=== PATIENT | male | born 1950 | race African-American/Black ===

== ENCOUNTER 2019-10-13 12:06 | Inpatient (IN) | payer OTHER ==
[2019-10-13] MEDS: FLUDROCORTISONE 0.1 MG TAB PO SCH (09:00)
[2019-10-13] MEDS: SODIUM BICARB 325 MG TAB PO SCH ×2 (09:00→23:28)
[2019-10-13] MEDS ORDERED: NA CHLORIDE 0.9% 3,000 ML ONE (13:10)
[2019-10-13] MEDS ORDERED: CEFTRIAXONE/SWI 1gm 1 GM/10 ML SYR ONE (13:13)
[2019-10-13] MEDS ORDERED: ACETAMINOPHEN 500 MG TAB ONE (13:13)
[2019-10-13 13:20] LABS: Absolute Lymphocytes (CBC) 1.3 K/uL (0.7-4.9); Basophils % 0.7 % (0-1.3); Hematocrit 39.9 % (39.6-49.0); Lymphocytes % 16.6 % (15.3-44.8); MPV 10.3 fL (7.6-11.3); RBC Red Blood Cell Count 4.04 M/uL (4.33-5.43)
[2019-10-13 13:24] LABS: Protime INR 0.99
[2019-10-13 13:51] LABS: Albumin 3.3 g/dL (3.4-5.0); Bilirubin Direct 0.2 mg/dL (0-0.2); Bilirubin Total 0.7 mg/dL (0.2-1.0); CKMB Creatine Kinase MB 3.2 ng/mL (0.3-3.6); Troponin (Emerg Dept Use Only) 0.04 ng/mL (0.0-0.045)
[2019-10-13 13:56] LABS: Potassium 5.9 mmol/L (3.5-5.1)
[2019-10-13] MEDS ORDERED: D50W 25 GM/50 ML SYRINGE/VIAL IV ONE (14:23)
[2019-10-13] MEDS ORDERED: INSULIN -REGULAR HUMAN 50 UNIT/0.5 ML ML ONE (14:23)
--- NOTE | 2019-10-13 14:25 | RAD REPORT ---
EXAM DESCRIPTION: Crow Single View10/13/2019 2:11 pm CLINICAL HISTORY: Cough COMPARISON: none FINDINGS: Right hemidiaphragm is elevated. Lungs appear grossly clear. Heart is normal size
[2019-10-13] MEDS ORDERED: SOD POLYSTYREN SUL 15 GM/60 ML UCUP ONE (14:27)
[2019-10-13] MEDS ORDERED: CALCIUM GLUCONATE 1gm/100 ML NS (4.65 mEq/100mL) IV ONE ×2 (14:30)
--- NOTE | 2019-10-13 14:44 | EDPHYS ---
Physician Documentation [facility] Name: Raymundo Zuniga Age: 69 yrs Sex: Male : 1950 Arrival Date: 10/13/2019 Time: 12:09 Bed 4 Private MD: Hakeem Oviedo R ED Physician Aubrey Gill HPI: 10/12 12:25 This 69 yrs old Black Male presents to ER via Wheelchair with complaints of Decreased pm1 Appetite, Fatigue, waiting on COVID results to come back. 12:25 The patient presents to the emergency department with diarrhea, Generalized weakness. pm1 Onset: The symptoms/episode began/occurred 4 day(s) ago. Possible causes: sick contacts, by family, positive for COVID 19. The symptoms are aggravated by nothing. The symptoms are alleviated by nothing. Associated signs and symptoms: Pertinent positives: fever, Generalized weakness, decreased appetite, Pertinent negatives: abdominal pain, constipation, nausea, vomiting. Severity of symptoms: in the emergency department the symptoms are worse. The patient has not experienced similar symptoms in the past. Pending COVID 19 swab results. Tested on at [facility]. Patient has multiple family members who tested positive for COVID-19. Historical: - Allergies: 12:49 No Known Allergies; ca1 - PMHx: 12:49 Hypertension; Diabetes - NIDDM; ca1 - Immunization history:: Adult Immunizations up to date. - Social history:: Smoking status: Patient denies any tobacco usage or history of. ROS: 12:25 Constitutional: Negative for fever, chills, and weight loss, Neck: Negative for injury, pm1 pain, and swelling, Cardiovascular: Negative for chest pain, palpitations, and edema, Respiratory: Negative for shortness of breath, cough, wheezing, and pleuritic chest pain, Back: Negative for injury and pain. 12:25 : Negative for injury, bleeding, discharge, and swelling, MS/Extremity: Negative for injury and deformity, Skin: Negative for injury, rash, and discoloration. 12:25 Abdomen/GI: Positive for diarrhea, Negative for abdominal pain, nausea and vomiting, constipation. 12:25 Neuro: Positive for generalized weakness, Negative for dizziness, headache, numbness, tingling. Exam: 12:25 Constitutional: This is a well developed, well nourished patient who is awake, alert, pm1 and in no acute distress. Head/Face: Normocephalic, atraumatic. Chest/axilla: Normal chest wall appearance and motion. Nontender with no deformity. No lesions are appreciated. 12:25 Back: No spinal tenderness. No costovertebral tenderness. Full range of motion. Skin: Warm, dry with normal turgor. Normal color with no rashes, no lesions, and no evidence of cellulitis. MS/ Extremity: Pulses equal, no cyanosis. Neurovascular intact. Full, normal range of motion. 12:25 Cardiovascular: Rate: tachycardic, Rhythm: regular, Pulses: no pulse deficits are appreciated, Edema: is not appreciated. 12:25 Respiratory: Exam negative for acute changes, respiratory distress, shortness of breath. 12:25 Abdomen/GI: Exam negative for acute changes, Inspection: abdomen appears normal, Palpation: abdomen is soft and non-tender, in all quadrants, mass, is not appreciated, rebound tenderness, is not appreciated. 12:25 Neuro: Exam negative for acute changes, Orientation: is normal, Mentation: is normal, Motor: is normal, moves all fours. Vital Signs: 12:43 BP 123 / 68; Pulse 119; Resp 19 S; Temp 101.6(O); Pulse Ox 90% on R/A; Weight 88.45 kg; ca1 Height 5 ft. 6 in. (167.64 cm) (R); 14:08 BP 101 / 64; Pulse 97; Resp 19; Pulse Ox 100% ; sv 14:56 Temp 100.4(O); sv 14:57 BP 121 / 74; Pulse 97; Resp 18; Pulse Ox 97% ; sv 15:40 BP 93 / 46; Pulse 101; Resp 18; Pulse Ox 97% ; sv 16:30 BP 115 / 53; Pulse 95; Resp 16; Pulse Ox 95% ; sv 12:43 Body Mass Index 31.47 (88.45 kg, 167.64 cm) ca1 MDM: 12:52 Patient medically screened. pat 14:07 Data reviewed: vital signs. pm1 14:41 Counseling: I had a detailed discussion with the patient and/or guardian regarding: the pm1 historical points, exam findings, and any diagnostic results supporting the discharge/admit diagnosis, lab results, radiology results, the need for further work-up and treatment in the hospital. 14:46 Physician consultation: Prasanth QUEEN was contacted at 14:46, regarding admission, pm1 patient's condition, and will see patient. 10/12 12:52 Order name: Amylase, Serum; Complete Time: 13:58 pm10/12 12:52 Order name: Basic Metabolic Panel; Complete Time: 13:58 pm10/12 12:52 Order name: Blood Culture Adult (2) pm10/12 12:52 Order name: CBC with Diff; Complete Time: 13:28 pm10/12 12:52 Order name: Ckmb; Complete Time: 13:58 pm10/12 12:52 Order name: CPK; Complete Time: 13:58 pm10/12 12:52 Order name: Lactate; Complete Time: 13:51 pm10/12 12:52 Order name: LFT's; Complete Time: 13:58 pm10/12 12:52 Order name: Lipase; Complete Time: 13:58 pm10/12 12:52 Order name: Procalcitonin; Complete Time: 14:11 pm10/12 12:52 Order name: Protime (+inr); Complete Time: 13:28 pm10/12 12:52 Order name: Ptt, Activated; Complete Time: 13:28 pm10/12 12:52 Order name: Troponin (emerg Dept Use Only); Complete Time: 13:58 pm10/12 12:52 Order name: Urine Microscopic Only 10/12 12:52 Order name: Fecal Leukocyte Stain 10/12 12:52 Order name: Stool Culture 10/12 12:52 Order name: Ova And Parasites 10/12 13:53 Order name: Flu 10/12 13:53 Order name: Strep; Complete Time: 15:07 pm10/12 13:54 Order name: Influenza Screen (A ; Complete Time: 15:07 EDKY 10/12 15:05 Order name: Throat Culture [facility] 10/12 15:53 Order name: Lactic Dehydrogenase [facility] 10/12 15:53 Order name: Ur Protein [facility] 10/12 15:53 Order name: Uric Acid [facility] 10/12 15:53 Order name: Basic Metabolic Panel [facility] 10/12 15:53 Order name: Basic Metabolic Panel [facility] 10/12 15:53 Order name: Basic Metabolic Panel [facility] 10/12 15:53 Order name: CBC with Automated Diff [facility] 10/12 15:53 Order name: CBC with Automated Diff [facility] 10/12 15:53 Order name: CBC with Automated Diff [facility] 10/12 12:52 Order name: Chest Single View XRAY; Complete Time: 14:40 pm1 10/12 12:52 Order name: Cardiac monitoring; Complete Time: 13:25 pm10/12 12:52 Order name: EKG - Nurse/Tech; Complete Time: 13:25 pm10/12 12:52 Order name: IV Saline Lock - Large Bore; Complete Time: 13:25 pm10/12 12:52 Order name: Labs collected and sent; Complete Time: 13:25 pm10/12 12:52 Order name: O2 Per Protocol; Complete Time: 13:25 pm1 10/12 12:52 Order name: O2 Sat Monitoring; Complete Time: 13:25 pm1 10/12 15:53 Order name: CONS Physician Consult [facility] 10/12 15:53 Order name: Renal [facility] 10/12 15:53 Order name: Hemoglobin A1c [facility] 10/12 15:53 Order name: Hemoglobin A1c [facility] 10/12 15:53 Order name: Magnesium [facility] 10/12 15:54 Order name: Magnesium [facility] 10/12 15:54 Order name: Renal Ultrasound-Complete [facility] 10/12 17:17 Order name: Glucose, Ancillary Testing; Complete Time: 17:22 EDMS Administered Medications: 13:40 Drug: NS 0.9% (30 ml/kg) 30 ml/kg Route: IV; Rate: bolus; Site: right antecubital; sv 13:40 Drug: Rocephin 1 grams Route: IV; Rate: calculated rate; Site: right antecubital; sv 13:42 Follow up: Response: No adverse reaction; IV Status: Completed infusion; IV Intake: 10mlsv 13:40 Drug: Tylenol 1000 mg Route: PO; sv 14:56 Follow up: Temp 100.4 Oral; Response: No adverse reaction; Temperature is decreased sv 14:55 Drug: Insulin Regular Human 10 units {Co-Signature: bp (Stevie Redding RN).} Route: IVP; sv Site: right antecubital; 15:30 Follow up: Response: No adverse reaction sv 14:55 Drug: D50W 50 ml Route: IVP; Site: right antecubital; sv 15:30 Follow up: Response: No adverse reaction sv 14:55 Drug: Kayexalate 30 grams Route: PO; sv 15:30 Follow up: Response: No adverse reaction sv 14:56 Drug: Calcium Gluconate 1 grams Route: IVPB; Infused Over: 60 mins; Site: right sv antecubital; 15:30 Follow up: Response: No adverse reaction; IV Status: Completed infusion; IV Intake: sv 100ml Disposition: 20:11 Co-signature as Attending Physician, Aubrey Gill MD I agree with the assessment and [facility] plan of care. Disposition: 10/13/19 14:43 Hospitalization ordered by Skip Schmitt for Inpatient Admission. Preliminary diagnosis are Dehydration, Diarrhea, unspecified, Rhabdomyolysis, Acute kidney failure, Coronavirus as the cause of diseases classified elsewhere. - Bed requested for Telemetry/MedSurg (Inpatient). - Status is Inpatient Admission. sv - Condition is Fair. - Problem is new. - Symptoms have improved. Signatures: Dispatcher [employer] EDMS Heidy Johnston RN RN sv Woody, Diana, RN RN dw Anderson, Corey, MD MD cha Martinez, Eric em1 Romel Mejia, FOX FARMER FOX FARMER pm1 Heike Weber RN RN ca1 Stevie Redding RN bp Corrections: (The following items were deleted from the chart) 13:41 12:52 Accucheck ordered. pm1 sv 16:17 14:43 Hospitalization Ordered by Skip Schmitt DO for Inpatient Admission. Preliminary em1 diagnosis is Dehydration; Diarrhea, unspecified; Rhabdomyolysis; Acute kidney failure; Coronavirus as the cause of diseases classified elsewhere. Bed requested for Telemetry/MedSurg (Inpatient). Status is Inpatient Admission. Condition is Fair. Problem is new. Symptoms have improved. pm1 17:17 16:17 10/13/2019 14:43 Hospitalization Ordered by Skip Schmitt DO for Inpatient dw Admission. Preliminary diagnosis is Dehydration; Diarrhea, unspecified; Rhabdomyolysis; Acute kidney failure; Coronavirus as the cause of diseases classified elsewhere. Bed requested for [facility] ER HOLD. Status is Inpatient Admission. Condition is Fair. Problem is new. Symptoms have improved. em1 18:00 17:17 10/13/2019 14:43 Hospitalization Ordered by Skip Schmitt DO for Inpatient sv Admission. Preliminary diagnosis is Dehydration; Diarrhea, unspecified; Rhabdomyolysis; Acute kidney failure; Coronavirus as the cause of diseases classified elsewhere. Bed requested for Telemetry/MedSurg (Inpatient). Status is Inpatient Admission. Condition is Fair. Problem is new. Symptoms have improved. dw
--- NOTE | 2019-10-13 14:44 | ER ---
Nurse's Notes [facility] Name: Raymundo Zuniga Age: 69 yrs Sex: Male : 1950 Arrival Date: 10/13/2019 Time: 12:09 Bed 4 Private MD: Hakeem Oviedo R Diagnosis: Dehydration;Diarrhea, unspecified;Rhabdomyolysis;Acute kidney failure;Coronavirus as the cause of diseases classified elsewhere Presentation: 10/12 12:47 Chief complaint: Patient states: Feeling weak, fatigued x 4 days. Tested for Covid 4 ca1 days ago, pending result. Reports cough, diarrhea. Denies SOB. Reports family members who live in his house all tested POSITIVE for Covid-19. Coronavirus screen: Surgical mask placed on patient. Patient moved to private room, placed in contact and droplet isolation with eye protection until further assessment. Patient reports a cough. Patient denies shortness of breath or difficulty breathing. Patient reports a measured and/or subjective temperature greater than 100.4F. Patient denies travel on a cruise ship or to a country the [facility] currently lists as an affected area. Patient reports contact with known and/or suspected case of COVID-19. Ebola Screen: Patient negative for fever greater than or equal to 101.5 degrees Fahrenheit, and additional compatible Ebola Virus Disease symptoms Patient denies exposure to infectious person. Patient denies travel to an Ebola-affected area in the 21 days before illness onset. No symptoms or risks identified at this time. Initial Sepsis Screen: Does the patient meet any 2 criteria? Temp <36.0*C (96.8*F)) or > 38.3*C (100.9*F). HR > 90 bpm. Yes Does the patient have a suspected source of infection? Yes: Productive cough/pneumonia If YES to both, name of provider notified: Romel Mejia NP. Risk Assessment: Do you want to hurt yourself or someone else? Patient reports no desire to harm self or others. Onset of symptoms was October 13, 2019. 12:47 Method Of Arrival: Wheelchair ca1 12:47 Acuity: VINAYAK 2 ca1 Historical: - Allergies: 12:49 No Known Allergies; ca1 - PMHx: 12:49 Hypertension; Diabetes - NIDDM; ca1 - Immunization history:: Adult Immunizations up to date. - Social history:: Smoking status: Patient denies any tobacco usage or history of. Screenin:40 Abuse screen: Denies threats or abuse. Denies injuries from another. Nutritional sv screening: No deficits noted. Tuberculosis screening: No symptoms or risk factors identified. Fall Risk None identified. Assessment: 13:23 Reassessment: Pt reports he had COVID-19 test completed on at [facility] aa5 outpatient. Spoke to [facility] Saff and they stated to contact [facility] for results. Spoke to [facility] and they stated results are back and they will contact patient with result in just a few minutes. . 13:35 General: Appears in no apparent distress. uncomfortable, ill, well developed, Behavior sv is cooperative, appropriate for age, quiet. General: Reports fever for > 3 days, feeling ill for > 3 days, fatigue for >3 days. Pain: Denies pain. Neuro: Level of Consciousness is awake, alert, obeys commands, Oriented to person, place, time, situation, Moves all extremities. Full function. Cardiovascular: Patient's skin is warm and dry. Pulses are palpable in right radial artery and left radial artery. Respiratory: Airway is patent Respiratory effort is even, unlabored, Respiratory pattern is regular, symmetrical. GI: Reports diarrhea. Derm: Skin is normal. 13:42 Reassessment: Faxed Medical Release of Information to [place] [id number] requesting COVID-19 result. . 14:32 Reassessment: Spoke to [facility] and stated they did not receive fax. [facility] Medical Release of Information requesting COVID-19 result was faxed to [facility].. 14:55 Reassessment: Patient appears in no apparent distress at this time. No changes from sv previously documented assessment. Patient and/or family updated on plan of care and expected duration. Pain level reassessed. Patient is alert, oriented x 3, equal unlabored respirations, skin warm/dry/pink. 15:40 Reassessment: Patient appears in no apparent distress at this time. No changes from sv previously documented assessment. Patient and/or family updated on plan of care and expected duration. Pain level reassessed. Patient is alert, oriented x 3, equal unlabored respirations, skin warm/dry/pink. 15:59 Reassessment: Fax received from Shane with [facility], COVID-19 result: aa5 detected, positive. JOB SERVICE SPECIALIST notified. . Vital Signs: 12:43 BP 123 / 68; Pulse 119; Resp 19 S; Temp 101.6(O); Pulse Ox 90% on R/A; Weight 88.45 kg; ca1 Height 5 ft. 6 in. (167.64 cm) (R); 14:08 BP 101 / 64; Pulse 97; Resp 19; Pulse Ox 100% ; sv 14:56 Temp 100.4(O); sv 14:57 BP 121 / 74; Pulse 97; Resp 18; Pulse Ox 97% ; sv 15:40 BP 93 / 46; Pulse 101; Resp 18; Pulse Ox 97% ; sv 16:30 BP 115 / 53; Pulse 95; Resp 16; Pulse Ox 95% ; sv 12:43 Body Mass Index 31.47 (88.45 kg, 167.64 cm) ca1 ED Course: 12:09 Patient arrived in ED. as 12:10 Hakeem Oviedo MD is Private Physician. as 12:48 Triage completed. ca1 12:48 Romel Mejia NP is PHCP. pm1 12:48 Aubrey Gill MD is Attending Physician. pm1 12:49 Arm band placed on right wrist. ca1 13:02 Heidy Johnston, JAMES is Primary Nurse. sv 13:15 Second set of blood cultures drawn by nj. Inserted saline lock: 20 gauge in right dh3 antecubital area, using aseptic technique. Blood collected. 13:19 EKG done, by ED staff, reviewed by Romel Mejia NP. dh3 13:40 Patient has correct armband on for positive identification. Bed in low position. Call sv light in reach. Side rails up X2. bus monitor on. Pulse ox on. NIBP on. Door closed. Pillow given. Head of bed elevated. 13:41 Chest Single View XRAY Sent. sv 14:07 Flu and/or RSV swab sent to lab. Strep swab sent to lab. sv 14:11 Flu Sent. sv 14:12 Chest Single View XRAY In Process Unspecified. EDMS 14:42 Skip Schmitt DO is Hospitalizing Provider. pm1 15:21 Shane with [facility] will send over COVID results via fax. aa5 17:31 No provider procedures requiring assistance completed. Patient admitted, IV remains in sv place. intact. Administered Medications: 13:40 Drug: NS 0.9% (30 ml/kg) 30 ml/kg Route: IV; Rate: bolus; Site: right antecubital; sv 13:40 Drug: Rocephin 1 grams Route: IV; Rate: calculated rate; Site: right antecubital; sv 13:42 Follow up: Response: No adverse reaction; IV Status: Completed infusion; IV Intake: 10mlsv 13:40 Drug: Tylenol 1000 mg Route: PO; sv 14:56 Follow up: Temp 100.4 Oral; Response: No adverse reaction; Temperature is decreased sv 14:55 Drug: Insulin Regular Human 10 units {Co-Signature: bp (Stevie Redding RN).} Route: IVP; sv Site: right antecubital; 15:30 Follow up: Response: No adverse reaction sv 14:55 Drug: D50W 50 ml Route: IVP; Site: right antecubital; sv 15:30 Follow up: Response: No adverse reaction sv 14:55 Drug: Kayexalate 30 grams Route: PO; sv 15:30 Follow up: Response: No adverse reaction sv 14:56 Drug: Calcium Gluconate 1 grams Route: IVPB; Infused Over: 60 mins; Site: right sv antecubital; 15:30 Follow up: Response: No adverse reaction; IV Status: Completed infusion; IV Intake: sv 100ml Intake: 13:42 IV: 10ml; Total: 10ml. sv 15:30 IV: 100ml; Total: 110ml. sv Outcome: 14:43 Decision to Hospitalize by Provider. pm1 18:00 Patient left the ED. sv Signatures: Dispatcher [employer] Heidy Reyes RN RN sv Natty Moody Audri, RN RN aa5 Romel Mejia, MARIA VICTORIA JOB SERVICE SPECIALIST pm1 Lyndsey Vargas 3 Heike Weber RN RN ca1 Stevie Redding RN bp Corrections: (The following items were deleted from the chart) 12:49 12:43 88.45 kg; Height 5 ft. 6 in. Reported; BMI: 31.4; ca1 ca1 12:59 12:47 Initial Sepsis Screen: Does the patient meet any 2 criteria? Temp <36.0*C ca1 (96.8*F)) or > 38.3*C (100.9*F). HR > 90 bpm. Yes Does the patient have a suspected source of infection? Yes: Productive cough/pneumonia ca1 : 13:23 Reassessment: Pt reports he had COVID-19 test completed on at [address] outpatient. Spoke to [facility] and they stated to contact [facility] for results. Spoke to [facility] and they stated results are back and they will contact patient with result in just a few minutes. . aa5 13: 13:23 Reassessment: Pt reports he had COVID-19 test completed on at [address] outpatient. Spoke to [facility] and they stated to contact [facility] for results. Spoke to [facility] and they stated results are back and they will contact patient with result in just a few minutes. . [facility] 13:30 13:23 Reassessment: Pt reports he had COVID-19 test completed on at [address] outpatient[address] Spoke to [facility] and they stated to contact [facility] for results. Spoke to [facility] and they stated results are back and they will contact patient with result in just a few minutes. . aa5 15:24 13:23 Reassessment: Pt reports he had COVID-19 test completed on at [facility] outpatient. Spoke to [facility] and they stated to contact [facility] for results. Spoke to [facility] and they stated results are back and they will contact patient with result in just a few minutes. . aa5 16: 15:59 Reassessment: Fax received from Shane with [facility], COVID-19 [facility] result: detected, positive. JOB SERVICE SPECIALIST notified. . aa5 16: 13:23 Reassessment: Pt reports he had COVID-19 test completed on at [address] outpatient[address] Spoke to [facility] and they stated to contact [facility] for results. Spoke to [facility] and they stated results are back and they will contact patient with result in just a few minutes. . sv
[2019-10-13] MEDS ORDERED: FUROSEMIDE 20 MG/ 2ML VIAL IV ONE ×2 (15:41→21:32)
[2019-10-13] MEDS ORDERED: ONDANSETRON 4 MG/2 ML VIAL IV PRN (15:41)
--- NOTE | 2019-10-13 16:01 | P.HP ---
Certification for Inpatient With expected LOS: >2 Midnights Patient will require the following post-hospital care: None Practitioner: I am a practitioner with admitting privileges, knowledge of patient current condition, hospital course, and medical plan of care. Services: Services provided to patient in accordance with Admission requirements found in Title 42 Section 412.3 of the Code of Federal Regulations <IgnacioPrasanth - Last Filed: 10/13/19 15:55> Patient History Date of Service: 10/13/19 Primary Care Provider: Dr. Oviedo Reason for admission: Acute renal failure, hyperkalemia, COVID-19 History of Present Illness: 69-year-old male with history of diabetes and hypertension presents to the emergency room with a four-day history of diarrhea and malaise. Patient reports that he has not had diarrhea in the past 24 hr but he is not feeling well. Patient reports that multiple family members have tested positive for Hernandez virus 19. Patient reported emergency room due to his malaise. During his evaluation in the emergency department patient was found to be in acute renal failure. Patient was admitted for further evaluation management. When I saw this patient in the emergency department he appeared calm and cooperative but still. Patient does not appear septic. Patient denies any kidney problems. Patient reports that he is tolerating fluids by mouth now not having anymore diarrhea. Patient denies any blood in his stool or any vomiting. Patient will be admitted for further evaluation management of his acute kidney injury. - Past Medical/Surgical History Has patient received pneumonia vaccine in the past: No Diabetic: Yes -: Diabetes mellitus type 2 -: Hypertension Past Surgical History: Reviewed- Non-Contributory Psychosocial/ Personal History: Patient lives at home with - Social History Smoking Status: Never smoker Alcohol use: Yes CD- Drugs: No Caffeine use: Yes Place of Residence: Home <Prasanth Pierre - Last Filed: 10/13/19 15:55> Date of Service: 10/13/19 History of Present Illness: Exam, evaluation, plan of care discussed in detail with nurse practitioner - Past Medical/Surgical History -: Suspect underlying chronic renal disease - Family History Family History: Reviewed- Non-Contributory <Skip Schmitt - Last Filed: 10/13/19 18:13> Allergies No Known Allergies Allergy (Unverified 10/13/19 14:19) Review of Systems General: Malaise Eyes: Unremarkable ENT: Unremarkable Respiratory: Unremarkable Cardiovascular: Unremarkable Gastrointestinal: Diarrhea, As per HPI Genitourinary: Unremarkable Musculoskeletal: Unremarkable Integumentary: Unremarkable Neurological: Unremarkable <IgnacioPrasanth - Last Filed: 10/13/19 15:55> Physical Examination - Physical Exam General: Alert, In no apparent distress, Oriented x3 HEENT: Atraumatic, Normocephalic Neck: Supple Respiratory: Clear to auscultation bilaterally, Normal air movement Cardiovascular: Regular rate/rhythm Capillary refill: <2 Seconds Gastrointestinal: Normal bowel sounds, Soft and benign Neurological: Normal gait, Normal speech - Studies Laboratory Data (last 24 hrs) 10/13/19 13:04: PT 11.7, INR 0.99, APTT 32.7 10/13/19 13:04: WBC 7.9, Hgb 13.0 L, Hct 39.9, Plt Count 134 L 10/13/19 13:04: Sodium 134 L, Potassium 5.9 H*, BUN 40 H, Creatinine 2.97 H, Glucose 229 H, Total Bilirubin 0.7, AST 42 H, ALT 31, Alkaline Phosphatase 67, Amylase 57, Lipase 111 Microbiology Data (last 24 hrs): 10/13/19 14:00 Nasopharnyx Influenza Type A Antigen Screen - Final 10/13/19 14:00 Nasopharnyx Influenza Type B Antigen Screen - Final 10/13/19 14:00 Throat Group A Streptococcus Rapid Screen - Final <Prasanth Pierre - Last Filed: 10/13/19 15:55> - Physical Exam Musculoskeletal: No erythema, No tenderness, No warmth Integumentary: No tenderness/swelling, No erythema, No warmth Neurological: Normal strength at 5/5 x4 extr, Normal affect Other Physical/Emotional Findings: Agree with examination by nurse practitioner. - Studies Laboratory Data (last 24 hrs) 10/13/19 13:04: PT 11.7, INR 0.99, APTT 32.7 10/13/19 13:04: WBC 7.9, Hgb 13.0 L, Hct 39.9, Plt Count 134 L 10/13/19 13:04: Sodium 134 L, Potassium 5.9 H*, BUN 40 H, Creatinine 2.97 H, Glucose 229 H, Total Bilirubin 0.7, AST 42 H, ALT 31, Alkaline Phosphatase 67, Amylase 57, Lipase 111 Microbiology Data (last 24 hrs): 10/13/19 14:00 Nasopharnyx Influenza Type A Antigen Screen - Final 10/13/19 14:00 Nasopharnyx Influenza Type B Antigen Screen - Final 10/13/19 14:00 Throat Group A Streptococcus Rapid Screen - Final <Skip Schmitt - Last Filed: 10/13/19 18:13> Assessment and Plan - Plan Assessment Acute kidney injury with hyperkalemia likely 2/2 dehydration 2/2 dehydration 2/2 COVID-19 Diabetes mellitus type 2 Hypertension Plan Acute kidney injury with hyperkalemia likely 2/2 dehydration 2/2 dehydration 2/2 COVID-19- patient will be admitted for further evaluation management condition. Patient received a bolus of IV fluid in the emergency department in addition to Kayexalate, calcium, insulin, dextrose. Nephrology has been consulted on this case. Will obtain urine creatinine and protein, serum uric acid, LDH, a renal ultrasound. Will continue to monitor patient's volume status. Will give 1 dose of Lasix 20 mg IV. Patient placed on renal diet. DVT prophylaxis with heparin. Appreciate input from nephrology. Patient is positive for Hernandez virus 19, only reported symptom is diarrhea which has since resolved. Will continue to monitor patient's symptoms. Diabetes mellitus type 2- patient we placed on a sliding scale insulin therapy. AC HS Accu-Cheks in place. A1c has been ordered to evaluate patient's glycemic control at home. Will continue to adjust medications as needed. Hypertension- will obtain and continue patient's home medications. Will adjust medications as needed based on renal function. Discharge Plan: Home Plan to discharge in: 72 Hours - Advance Directives Does patient have a Living Will: No Does patient have a Durable POA for Healthcare: No - Code Status/Comfort Care Code Status Assessed: Yes (Patient is full code) Time Spent Managing Pts Care (In Minutes): 55 <Prasanth Pierre - Last Filed: 10/13/19 15:55> - Plan Case discussed at length with nurse practitioner. Patient presented with acute renal injury suspect underlying chronic renal disease stage III. Patient with s evere dehydration. Patient also had diarrhea which has resolved. If with diarrhea will need to rule out other causes. Stool studies in place. Blood cultures obtained. Patient with hyperkalemia. Patient was treated for this in the emergency room. Case discussed with nephrology. Continue with nephrology recommendation. Patient with diabetes mellitus type 2 and hypertension. Continue sliding scale and monitor Accu-Cheks need to review home medications closely. I will turn the service over to the hospitalist team tomorrow. I will go over the plan of care with him. <Skip Schmitt - Last Filed: 10/13/19 18:13>
[2019-10-13] MEDS: INSULIN -REGULAR HUMAN 50 UNIT/0.5 ML ML SQ SCH ×2 (16:30→21:28)
[2019-10-13 17:02] VITALS: BMI 31.3
--- NOTE | 2019-10-13 17:56 | RAD REPORT ---
EXAM DESCRIPTION: US - Renal Ultrasound-Complete - 10/13/2019 5:40 pm CLINICAL HISTORY: Acute renal insufficiency COMPARISON: None. FINDINGS: The right kidney measures 9 cm with an increased echotexture. The left kidney measures 10 cm with an increased echotexture. 4 cm cyst Hydronephrosis is not seen. No gross abnormality of bladder is seen IMPRESSION: Increased renal echotexture consistent with parenchymal disease 4 centimeter left renal cyst
[2019-10-13] MEDS ORDERED: PNEUMOCOCCAL VACCINE 0.5 ML IMVAC ONE (18:00)
[2019-10-13] MEDS: HEPARIN 5000 UNIT/ML 1 ML VIAL SQ SCH (21:27)
[2019-10-13] MEDS: BENZONATATE 100 MG CAP PO PRN (21:28)
[2019-10-13 21:40] LABS: Urine Bacteria NONE SEEN /HPF (NONE SEEN); Urine Culture Reflex Order NOT NEEDED; Urine RBC NONE SEEN /HPF (NONE SEEN)
[2019-10-13 21:42] LABS: Urine Protein/Creatinine Ratio 1.28 ratio (<0.15)
[2019-10-13 22:36] LABS: Uric Acid 7.9 mg/dL (3.5-7.2)
[2019-10-13] MEDS: NA CHLORIDE 0.9% 1,000 ML IV SCH (23:28)
[2019-10-13] MEDS: ACETAMINOPHEN 500 MG TAB PO PRN (23:58)
--- NOTE | 2019-10-14 01:04 | CON ---
Date of Consultation: 10/13/2019 Chief Complaint: Acute kidney injury on chronic kidney disease, hyperkalemia. History Of Present Illness: Nephrology consultation is requested for nonoliguric acute kidney injury . Patient has multiple medical problems including history of diabetes mellitus and hypertension. He came to the emergency room because of a 4-day history of diarrhea and malaise. Patient has had diar dia for at least 24 hours before admission and was not feeling well. Patient denies melena, hematem esis. The patient reports that multiple family members were tested positive for coronavirus. Max pate was found to have COVID-19 test positive. He is admitted to the hospital. Patient denies previous kidney problems. Denies blood in the stool. Past Medical History: Diabetes mellitus, hypertension. Social History: Denies tobacco, alcohol, or illicit drugs. Family History: Recent history of COVID positive test in the family. Review of Systems: General: Malaise. Eyes: No vision changes. Ears, Nose, Mouth, and Throat: No sore throat. Respiratory: No shortness of breath. No wheezing. Cardiovascular: No chest pain or palpitations. GI: Complains of diarrhea. : Denies dysuria, hematuria. Musculoskeletal: Denies tremor. All other systems negative. Physical Examination: General: The patient is alert and oriented. Eyes: Anicteric sclerae. EOMI. Ears, Nose, Mouth and Throat: Oral mucosa moist. No pallor. Neck: Supple. No bruits. Lungs: Clear to auscultation bilaterally. No rhonchi. No wheezing. Heart: S1, S2. No pericardial friction rub. Laboratory Data: INR is 0.99, PT 11.7, PTT 32.7, WBC 7.9, hemoglobin 13.0, hematocrit 39.9, platelet count 134,000. BUN is 40, creatinine 2.97, glucose 222, potassium 5.9, sodium 134, bilirubin 0.7. Renal ultrasound showed increased renal echotexture consistent with parenchymal disease, medical dise ase, and 4 cm left renal cyst. Impression And Plan: The patient has chronic kidney disease and acute kidney injury on previous occa mela but in November 2013, creatinine level was 1.7. Renal ultrasound showed hyperechogenic kidneys, whi ch is significant for chronic kidney disease. Today, patient was found to have hyperkalemia, potassi um of 5.9, and elevated BUN-creatinine ratio consistent with prerenal azotemia and possible nonoligur ic acute tubular necrosis. Renal workup will be obtained and urinalysis with microscopic examination is pending. Dqinx-dsrpeov-gzezvldlak ratio is obtained and pending. Patient has history of hyperte nsion. Patient may have hypertensive kidney disease, benign nephrosclerosis. Blood glucose is eleva zari and diabetic kidney disease will be evaluated with proteinuria. In case, the patient has signifi cantly elevated proteinuria, the patient may need to be screened for monoclonal gammopathy of unknown significance. LETTY/SHALOM Voice ID: [id number] Report ID: [id number]
[2019-10-14 04:19] LABS: Absolute Lymphocytes (CBC) 1.7 K/uL (0.7-4.9); Basophils % 0.4 % (0-1.3); Hematocrit 35.3 % (39.6-49.0); Lymphocytes % 28.5 % (15.3-44.8); MPV 10.3 fL (7.6-11.3); RBC Red Blood Cell Count 3.57 M/uL (4.33-5.43)
[2019-10-14 04:33] LABS: Albumin 2.9 g/dL (3.4-5.0); Bilirubin Total 0.4 mg/dL (0.2-1.0); Phosphorus 3.5 mg/dL (2.5-4.9); Potassium 5.3 mmol/L (3.5-5.1); Protein, Total 6.8 g/dL (6.4-8.2)
[2019-10-14] MEDS: FLUDROCORTISONE 0.1 MG TAB PO SCH (08:14)
[2019-10-14] MEDS: SODIUM BICARB 325 MG TAB PO SCH (08:14)
[2019-10-14] MEDS: BENZONATATE 100 MG CAP PO PRN ×2 (08:14→21:09)
[2019-10-14] MEDS: HEPARIN 5000 UNIT/ML 1 ML VIAL SQ SCH ×2 (08:14→21:09)
[2019-10-14] MEDS: NA CHLORIDE 0.9% 1,000 ML IV SCH ×2 (08:15→17:27)
[2019-10-14] MEDS: INSULIN -REGULAR HUMAN 50 UNIT/0.5 ML ML SQ SCH ×4 (08:17→21:08)
[2019-10-14] MEDS: ACETAMINOPHEN 500 MG TAB PO PRN ×2 (08:45→16:16)
[2019-10-14] MEDS ORDERED: VANCOMYCIN/NS 1 gm 1 GM/250 ML BAG IVPB SCH (10:00)
[2019-10-14] MEDS ORDERED: VANCOMYCIN 1.5 GM in NA CHLORIDE 0.9% 500 ML IVPB SCH (11:00)
[2019-10-14] MEDS ORDERED: NA CHLORIDE 0.9% 1,000 ML IV SCH (12:35)
[2019-10-14 14:51] LABS: C.diff Antigen/Toxin Ag neg : Tox neg (NEG : NEG)
--- NOTE | 2019-10-14 16:09 | PN ---
Date of Progress Note: 10/14/2019 Subjective: Patient was evaluated using telemedicine based on the current COVID-19 outbreak, current CDC, [facility] guidance to social distancing and self- isolation of at-risk persons. Telemedicine was used. Patient was offered the tele health services. All the risks, benefits, and alternatives through this virtual video visit were explained to the patient and the patient consented to this modality of care. Visit was carried out using the secure line. All parties in room were identified and approved by the patient prior to the consult. No technical issues experienced. Level of care equivalent to in- person care was achieved. Patient reports that his diarrhea is better. He is still having some loose stools, will be sent off for C diff. Code Status: Full. Medications: List reviewed. Physical Examination: Vital Signs: Temperature, T-max 101.1 around midnight, T-current is 100.1; pulse 82; respirations 18; blood pressure 113/58; O2 of 95% on 3 L via nasal cannula. General: Awake, alert, oriented x3. Elderly male, in some mild distress. Respiratory: Patient does not seem to be in any visual respiratory distress. Does have nasal cannula in place. No visual use of accessory muscles. Neuro: Patient moves all 4 extremities. Speech is normal. Laboratory Data: Sodium 139, potassium 5.3, chloride 111, CO2 of 23, BUN 34, creatinine 2.47, glucose 169. Hemoglobin A1c 6.5%. Calcium 8.2, phosphorus 2.5, magnesium 2. Ferritin 1611. AST 41, ALT 31. LDH 290. CK level is 969. Albumin 2.9. WBC 5.9, H and H 11.6 and 35.3, platelets 118, neutrophils 61%. C difficile assay is pending. Influenza screen and group A strep are negative. Throat culture shows normal upper respiratory ashvin. Blood cultures and stool cultures pending; however, preliminary blood culture shows gram-positive cocci in clusters 1/4 bottles. Assessment: A 69-year-old male with: 1. Acute kidney injury. We will continue with IV fluids. Appreciate Nephrology input. Patient does have elevated CK level, likely due to dehydration and possibly rhabdomyolysis. Continue with renal dose adjustment. 2. Patient has coronavirus disease 2019. Continues to have fevers. Currently on 3 L via nasal cannula and having diarrhea. We will continue with stool studies. 3. Diabetes mellitus type 2. Sliding scale insulin. We will continue to monitor blood glucose levels. 4. Essential hypertension. Blood pressure currently on the normotensive side. We will hold blood pressure medications. Hold ARB due to acute kidney injury. Plan: We will follow up with stool studies. Hyperkalemia is improved. Kidney function is also improving. Ferritin is elevated at 1611. We will apply for convalescent plasma. ID has been consulted. Patient has overall guarded prognosis. The patient was seen virtually. Physical exam completed using telemedicine. The assessment and plan are based on chart review, History of Present Illness, and physical exam findings gathered during this encounter. Every effort has been made to make this encounter comprehensive to the best of our abilities. /SHALOM Voice ID: [id number] Report ID: [id number] JOSE C
[2019-10-14] MEDS: METHYLPREDNISOLONE 40 MG INJ IV SCH (16:23)
[2019-10-14] MEDS: AZITHROMYCIN IV 500 MG in NA CHLORIDE 0.9% 250 ML IVPB SCH (17:02)
--- NOTE | 2019-10-14 19:04 | PN ---
Subjective: Patient was admitted with COVID-19 pneumonia. Patient being on treatment. Patient stinishant l have some shortness of breath. Patient had the diarrhea for few days after hydration. Kidney func tion has been trending down. Physical Examination: Vital Signs: When I saw the patient, blood pressure 105/56, pulse of 89, afebrile. Patient had good urine output. Chest: Crackles on the base. Heart: S1, S2 regular. Abdomen: Soft, nontender. Extremities: No edema. Neurologic: Alert and oriented x3. Nonfocal. Please notice that this physical exam has been done by the nurse as the whole visit been done as by migel rodriguez as the patient on isolation because of COVID pneumonia. Laboratory Data: WBC 5.9, H and H 11.6/35.3, platelets 118. Sodium 139, potassium 5.3, bicarb 23, B UN 34, creatinine 2.4, hemoglobin A1c 6.5, uric acid 7.9, phosphorus 3.5. LDH of 290. Current Medications: The patient on include: 1.Vancomycin. 2.Tylenol. 3.Sodium bicarb 650 b.i.d. 4.Zofran. 5.Florinef. 6.IV fluid 75 per hour. Assessment And Plan: 1.Acute kidney injury secondary to prerenal/coronavirus disease nephropathy look to me still on the dry side. I am going to decrease IV fluid to 50 per hour and we will monitor the patient. 2.Hypertension. We will continue to monitor the patient closely. I going to decrease IV fluid to 5 0 per hour. 3.Hypertension controlled, optimal currently. Blood pressure on the lower side. We will hold all d iuresis. 4.Acidosis. Non-anion gap metabolic acidosis secondary to gastrointestinal loss. I do not see the need for sodium bicarb right now. 5.Diarrhea as by primary. 6.Marginal hyperkalemia. We will monitor closely. Followup Florinef. 7.Coronavirus disease pneumonia. Follow up with the primary. EMELIA/SHALOM Voice ID: [id number] Report ID: [id number]
--- NOTE | 2019-10-14 19:19 | CON ---
History Of Present Illness: This is a 69-year-old male. I was consulted for COVID pneumonia. Brian horton was brought in yesterday through the emergency room with significant history of diabetes mellitus, hypertension, came in with 4 days of diarrhea and malaise. Patient denies any headache, nausea, vom iting, chest pain, abdominal pain, constipation, diarrhea, currently being treated with 3 L of nasal cannula. Patient was positive for coronavirus 2019. Past Medical History: As per HPI, diabetes mellitus, hypertension. Social History: Nonsmoker. Alcohol positive. Lives at home. Current Medications: Include Tylenol, vancomycin. See MAR for other medication. Allergies: NO KNOWN DRUG ALLERGIES. Review of Systems: A 10-point review was performed. Physical Examination: General: This is a 69-year-old male. Telemedicine examination was performed. Vital Signs: Temperature 99.6, pulse 89, respirations 18, blood pressure 105/56. Laboratory Data: Shows WBC 5.9, hemoglobin 11.6, platelets are 118. Chemistry shows sodium 139, pot assium 5.3, chloride 111, bicarb 23, BUN 34, creatinine 2.47, glucose is 169, albumin level is 2.9. Blood cultures, no growth in 24 hours. Chest x-ray shows patient has right hemidiaphragm elevated, l ungs appear grossly normal. Assessment And Plan: A 69-year-old male coming in with diarrhea and coronavirus disease 2019 positiv e with fevers and thrombocytopenia. We will recommend to start patient on Solu-Medrol 40 mg IV q.8 h ours. Also start patient on vitamin C 1000 mg and vitamin D and zinc. Consider starting Zithromax 5 00 mg if patient's pulmonary symptoms starts to become pronounced. We will continue current treatmen t and follow patient closely. Also check on stool for WBC count. Thank you for consult. Dr. Holm will follow the patient closely. NF/MODL Voice ID: [id number] Report ID: [id number]
[2019-10-14] MEDS: LACTOBACILLUS/ACIDOPHILUS TAB PO SCH (21:09)
[2019-10-15] MEDS: METHYLPREDNISOLONE 40 MG INJ IV SCH ×2 (00:18→08:15)
[2019-10-15 04:18] LABS: Absolute Lymphocytes (CBC) 0.6 K/uL (0.7-4.9); Basophils % 0.2 % (0-1.3); Hematocrit 34.6 % (39.6-49.0); MPV 10.1 fL (7.6-11.3); RBC Red Blood Cell Count 3.48 M/uL (4.33-5.43)
[2019-10-15 04:33] LABS: Albumin 2.8 g/dL (3.4-5.0); Phosphorus 4.1 mg/dL (2.5-4.9)
[2019-10-15] MEDS: NA CHLORIDE 0.9% 1,000 ML IV SCH (05:36)
--- NOTE | 2019-10-15 07:25 | EKG ---
Test Date: 2019-10-13 Test Time: 13:19:15 Vamp Maker: NEGRITA MEASUREMENT RESULTS: Intervals: Rate: 99 IN: 138 QRSD: 118 QT: 368 QTc: 472 [place]: P: 32 IN: 138 QRS: -72 T: 46 INTERPRETIVE STATEMENTS: Normal sinus rhythm Right bundle branch block Left anterior fascicular block Bifascicular block Abnormal ECG No previous ECG available for comparison Electronically Signed On 10-15-19 07:23:10 CDT by Carlos Jara
[2019-10-15] MEDS: LACTOBACILLUS/ACIDOPHILUS TAB PO SCH ×2 (08:15→20:38)
[2019-10-15] MEDS: FLUDROCORTISONE 0.1 MG TAB PO SCH (08:15)
[2019-10-15] MEDS: HEPARIN 5000 UNIT/ML 1 ML VIAL SQ SCH (08:15)
[2019-10-15] MEDS: AZITHROMYCIN IV 500 MG in NA CHLORIDE 0.9% 250 ML IVPB SCH (08:15)
[2019-10-15] MEDS: NEPRO SHAKE 237 ML CAN PO SCH (08:16)
[2019-10-15] MEDS: INSULIN -REGULAR HUMAN 50 UNIT/0.5 ML ML SQ SCH ×5 (08:16→20:42)
[2019-10-15] MEDS ORDERED: IRBESARTAN 300 MG PO SCH (09:00)
[2019-10-15] MEDS ORDERED: NA CHLORIDE 0.9% 1,000 ML IV SCH (10:31)
[2019-10-15] MEDS ORDERED: GLUCAGON 1 MG/VIAL IM PRN (12:08)
[2019-10-15] MEDS ORDERED: D50W 25 GM/50 ML SYRINGE/VIAL IV PRN (12:08)
--- NOTE | 2019-10-15 12:39 | P.CNS ---
Date of Consult: 10/15/19 Primary Care Provider: Dr. Oviedo Chief Complaint: Respiratory failure History of Present Illness: Patient is 69 years of age with a history of diabetes hypertension presented with diarrhea amylase this tested positive for ruano virus exposure to family members including still is weak now hypoxic requiring oxygen patient has chronic renal insufficiency Allergies No Known Allergies Allergy (Unverified 10/13/19 14:19) Home Medications: Amlodipine Besylate 10 mg PO DAILY 10/13/19 Furosemide 40 mg PO DAILY 10/13/19 Hydralazine HCl 50 mg PO BID 10/13/19 Insulin NPH Hum/Reg Insulin Hm [Novolin 70-30 Flexpen] 50 unit SQ BID 10/13/19 Irbesartan 300 mg PO DAILY 10/13/19 Potassium Chloride 20 meq PO DAILY 10/13/19 Pravastatin Sodium 10 mg PO BEDTIME 10/13/19 Spironolactone 25 mg PO DAILY 10/13/19 atenoloL [Atenolol] 50 mg PO DAILY 10/13/19 - Past Medical/Surgical History Diabetic: Yes -: Diabetes mellitus type 2 -: Hypertension -: Suspect underlying chronic renal disease Psychosocial/ Personal History: Patient lives at home with - Social History Alcohol use: Yes CD- Drugs: No Caffeine use: Yes Place of Residence: Home Review of Systems Did not examine the patient Physical Examination Temp Pulse Resp BP Pulse Ox 98.4 F 83 19 135/63 92 10/15/19 08:00 10/15/19 08:00 10/15/19 08:00 10/15/19 08:00 10/15/19 08:00 General: Other (Deferred) - Problems (1) Respiratory failure Current Visit: Yes Status: Acute Plan: Patient is 69 years of age with a chronic renal disease diabetes hypertension admitted with diarrhea weakness hypoxemia renal function is improving I recommend patient being on a negative fluid balance and Lasix Dc IV fluids patient's cultures are negative had BiPAP patient has some interstitial changes Change to p.o. Zithromax white steroids for now until his condition deteriorates on BiPAP and Lasix patient is febrile use higher doses of Lovenox due to underlying thrombotic tendency Qualifiers: Chronicity: acute
[2019-10-15] MEDS ORDERED: NA CHLORIDE 0.9% 250 ML ONE (14:51)
--- NOTE | 2019-10-15 15:16 | PN ---
Date of Progress Note: 10/15/2019 Subjective: All this visit has been done by the video as patient has COVID pneumonia and on isolatio n. Patient was admitted with COVID pneumonia, dehydration, acute kidney injury. Upon arrival, creat inine was above 2. The patient was started on IV hydration. Kidney function started being improving . Patient is feeling slightly better. Objective: Vital Signs: Blood pressure 140/75, pulse of 87. Chest: Crackles on the left base. Heart: S1, S2 regular. Abdomen: Soft, nontender. Extremities: No edema. Neurologic: No focal. All this exam has been done by the nurse under my instruction. Laboratory Data: WBC 3.7, H and H 11.4/34.6, platelets 123. Sodium 137, potassium 5, bicarb 21, BUN 31, creatinine 2, GFR 39, calcium of 8, phosphorus 4.1. Current Medications: The patient on, include: 1.IV fluid normal saline. 2.Lovenox. 3.Lasix. 4.Insulin. 5.Vitamin C. Assessment And Plan: 1.Acute kidney injury secondary to prerenal, secondary to gastrointestinal loss, recovered, look to me normal volume. I am going to discontinue IV fluid. 2.Hypertension. Control optimal. Continue current medication. 3.Gastroenteritis. We will monitor. The patient's diarrhea has been stopped. 4.Coronavirus disease pneumonia. Follow up with hospitalist and ID. FAITH Voice ID: [id number] Report ID: [id number]
--- NOTE | 2019-10-15 15:19 | P.PN ---
Date of Service: 10/15/19 Subjective: Patient is a 69-year-old male who presented to the emergency room with diarrhea and malaise. Patient reported multiple family members with Covid 19. Patient tested positive for Covid 19 which I have been consulted for. Per nurse, patient started to have shortness of breath and oxygen levels decrease with activity as low as 88%. Patient requiring BIPAP. Objective: Temp Pulse Resp BP Pulse Ox 98.4 F 87 20 140/75 92 10/15/19 12:00 10/15/19 12:00 10/15/19 12:00 10/15/19 12:10/15/19 12:00 Labs: WBC 3.7, Hgb 11.4, Hct 34.6, Plt 123 Chest x-ray 10/12: EXAM DESCRIPTION: Kayleight Single View10/13/2019 2:11 pm CLINICAL HISTORY: Cough COMPARISON: none FINDINGS: Right hemidiaphragm is elevated. Lungs appear grossly clear. Heart is normal size Assessment And Plan: Diarrhea, pending fecal leukocyte, ova and parasites and culture Fevers resolved Covid 19, continue current treatment Continue respiratory care Will continue to monitor Patient discussed with Dr. Hamilton
--- NOTE | 2019-10-15 16:08 | PN ---
Date of Progress Note: 10/15/2019 Subjective: Patient was evaluated using telemedicine. Patient seems to be improving and says that his diarrhea has improved. Case was discussed with Dr. Hamilton yesterday. He recommended adding azithromycin, vitamin C and D, and steroids. Patient is still on 3 L of oxygen. He is able to tolerate some diet. Medications: List reviewed. Physical Examination: Vital Signs: Temperature 98.4, heart rate 83, blood pressure 135/62, respirations 19, O2 of 92% on 3 L. General: Awake, alert, oriented x3. Elderly male, does not appear to be in any acute distress, however, is on supplemental oxygen. Obese. Respiratory: No visual distress seen. Not using any accessory muscles. Nasal cannula is in place. NEUROLOGIC: Moves all 4 extremities. Speech is normal. Laboratory Data: Sodium 137, potassium 5, chloride 111, CO2 of 21, BUN 31, creatinine 2.04, glucose 320, calcium 8, ferritin trending down to 1353, albumin 2.8. WBC 3.7, H and H 11.4 and 34.6, platelets 123. C difficile is negative. Stool cultures are pending. Assessment: 69-year-old male with: 1. Coronavirus disease 2019, has been afebrile for about 18 hours, improving. Added azithromycin for his pneumonia and hypoxia prophylactically. Started on vitamin C and D. Appreciate ID input. 2. Acute kidney injury. Kidney function is improving with rhabdomyolysis. CK level is trending down. We will repeat CPK in a.m. 3. Diabetes mellitus type 2, non-insulin requiring with hyperglycemia. We will continue sliding scale insulin. Monitor blood glucose levels. 4. Essential hypertension, stable. Blood pressure is now improved in the 120s to 130s. We will hold off on blood pressure medications for now. Hold ARB due to acute kidney injury. 5. We will add Pepcid for GI prophylaxis. Patient is on heparin for DVT prophylaxis, renally dosed. Patient's blood cultures had grown out 1 bottle of gram-positive cocci, which is Staph coagulase negative, therefore contaminant. We will discontinue vancomycin. Continue Lactinex. 6. Diarrhea, likely due to coronavirus disease 2019, improving. Continue with minimal IV fluids to avoid fluid overload and continue Lactinex. 7. Acute respiratory failure w hypoxia 2/2 COVID19 Plan: Pulmonology consult. Check room air sat and wean off O2. The patient did consent to convalescent plasma. The hospital and myself have been registered. We will register patient for convalescent plasma. He understands the risks versus benefits. The patient was seen virtually. Physical exam was completed using telemedicine and bedside RN assistance. Assessment and plan based on chart review, HPI, physical exam findings gathered during this encounter. Every effort has been made to make this encounter comprehensive to the best of our abilities, will be reassessed in a.m. BLAIRE Voice ID: [id number] Report ID: [id number] JOSE C
[2019-10-15] MEDS ORDERED: FUROSEMIDE 20 MG/ 2ML VIAL IV SCH (17:00)
[2019-10-15] MEDS: ENOXAPARIN 40 MG/0.4 ML SQ SCH (20:38)
[2019-10-15] MEDS ORDERED: INSULIN GLARGINE 100 UNITS/ML SQ SCH (21:00)
[2019-10-16 05:10] LABS: Albumin 2.9 g/dL (3.4-5.0); Potassium 5.1 mmol/L (3.5-5.1)
[2019-10-16] MEDS: INSULIN -REGULAR HUMAN 50 UNIT/0.5 ML ML SQ SCH ×6 (05:25→20:17)
[2019-10-16] MEDS: BENZONATATE 100 MG CAP PO PRN ×2 (05:31→20:29)
[2019-10-16] MEDS ORDERED: INSULIN GLARGINE 100 UNITS/ML SQ SCH ×2 (08:00→09:00)
[2019-10-16] MEDS: NEPRO SHAKE 237 ML CAN PO SCH (09:00)
[2019-10-16] MEDS ORDERED: NA CHLORIDE 0.9% 500 ML IV PRN (09:08)
[2019-10-16] MEDS: ASCORBIC ACID 500 MG TABLET PO SCH (09:25)
[2019-10-16] MEDS: FAMOTIDINE 20 MG TAB PO SCH (09:25)
[2019-10-16] MEDS: LACTOBACILLUS/ACIDOPHILUS TAB PO SCH ×2 (09:25→20:15)
[2019-10-16] MEDS: ENOXAPARIN 40 MG/0.4 ML SQ SCH ×2 (09:25→20:15)
[2019-10-16] MEDS: VITAMIN D 1000 UNIT TAB PO SCH (09:25)
[2019-10-16] MEDS: AZITHROMYCIN 250 MG TAB PO SCH (09:25)
--- NOTE | 2019-10-16 09:32 | P.PN ---
Date of Service: 10/16/19 Subjective: Patient is a 69-year-old male who presented to the emergency room with diarrhea and malaise. Patient reported multiple family members with Covid 19. Patient tested positive for Covid 19 which I have been consulted for. Patient examined through telehealth medicine. Patient lying in bed utilizing nasal cannula. Denies fever, diarrhea and pain. Patient rpeorts shortness of breath with activity and fatigue. Objective: Temp Pulse Resp BP Pulse Ox 97.3 F 77 22 H 126/65 91 10/16/19 07:52 10/16/19 07:52 10/16/19 07:52 10/16/19 07:52 10/16/19 07:52 Labs: Na, 139, K 5.1, BUN 42, Cret 2.00, glucose 423, WBC 3.7, Hgb 11.4, Hct 34.6, Plt 123 Chest x-ray 10/12: EXAM DESCRIPTION: Crow Single View10/13/2019 2:11 pm CLINICAL HISTORY: Cough COMPARISON: none FINDINGS: Right hemidiaphragm is elevated. Lungs appear grossly clear. Heart is normal size Assessment And Plan: Diarrhea improved, pending fecal leukocyte, ova and parasites Stool cultures negative for salmonella, shigella and campylobacter Fevers resolved Covid 19, continue current treatment with Azithromycin for total of 6 days Recommend to add Zinc Will order repeat chest x-ray Continue respiratory care Will continue to monitor Patient discussed with Dr. Hamilton
--- NOTE | 2019-10-16 11:35 | RAD REPORT ---
EXAM DESCRIPTION: RAD - Chest Single View - 10/16/2019 11:13 am CLINICAL HISTORY: Follow up Chest pain. COMPARISON: Chest Single View dated 10/13/2019 FINDINGS: Portable technique limits examination quality. Mild worsening in bilateral pulmonary opacities since comparative study. The heart is normal in size. No displaced fractures. IMPRESSION: Mild worsening in lung aeration is seen.
[2019-10-16] MEDS: predniSONE 20 MG TAB PO SCH ×2 (12:07→20:15)
--- NOTE | 2019-10-16 12:11 | P.PN ---
Subjective Date of Service: 10/16/19 Primary Care Provider: Dr. Oviedo Chief Complaint: Respiratory failure No change patient is still weak chest x-rays were still requiring significant amount of oxygen Review of Systems General: Other ( due for) Physical Examination - Vital Signs Temperature: 97.3 F Blood Pressure: 126/65 Pulse: 77 Respirations: 22 Pulse Ox (%): 91 - Physical Exam General: Other ( did not examine the patient) Other Physical/Emotional Findings: Agree with examination by nurse practitioner. - Studies Microbiology Data (last 24 hrs): 10/13/19 14:00 Throat Culture & Sensitivity - Final NORMAL UPPER RESPIRATORY JOEY GROWN. Assessment & Plan - Problems (Diagnosis) (1) Respiratory failure Current Visit: Yes Status: Acute Plan: patient admitted with coving pneumonia chest x-ray slightly worse still requiring significant amount of oxygen on BiPAP continue with Lasix 40 in negative fluid balance is creatinine is 2.0 at low-dose prednisone maintaining sat on 91% on 4 L aggressive control of blood sugar Lantus as been increased Qualifiers: Chronicity: acute
--- NOTE | 2019-10-16 15:29 | PN ---
Date of Progress Note: 10/16/2019 Subjective: Patient was admitted with acute kidney injury secondary to COVID nephropathy, prerenal, secondary to GI loss with GI symptoms. Patient was treated with IV hydration. Kidney function is sl ightly better. Physical Examination: Vital Signs: Blood pressure 126/65, pulse of 77, afebrile. Patient had good urine output of 3600. Patient was negative of 1400. Patient is still on nasal cannula, requiring BiPAP at night. Chest: Faint crackles on the left base. Heart: S1, S2. Regular. Abdomen: Soft, nontender. Extremities: No edema. Laboratory Data: WBC 3.7, H and H 11.4/34.6, platelet 123. Sodium 139, potassium 5.1, bicarb 22, BU N 42, creatinine 2, GFR up to 40, blood sugar still not controlled, calcium 9.1. Phosphorus of 3. A lbumin 2.9. CK 533. Current Medications: The patient is on: 1.Azithromycin. 2.Tylenol. 3.Pepcid. 4.Insulin R. 5.Vitamin C. 6.Vitamin D. Assessment And Plan: 1.Acute kidney injury, multifactorial secondary to coronavirus disease nephropathy, supported with e levation in the LDH, superimposed with prerenal secondary to gastrointestinal loss. On the recovery, looked to me still on the dry side. We are going to go ahead and bolus the patient with normal sali ne. We will try to establish better fluid status for the patient by controlling his blood sugar as h e is getting glucose diuresis. 2.Hypertension, controlled, optimal. Continue current medications. 3.Rhabdomyolysis. CK trending down. Continue hydration. 4.Coronavirus disease pneumonia. Continue current treatment. Follow up with the primary. 5.Diabetes. I am going to go ahead and increase his Lantus. We will follow up with the primary. 6.Marginal hyperkalemia. We will hydrate. 7.Acidosis, resolved. MA/MODL Voice ID: [id number] Report ID: [id number]
--- NOTE | 2019-10-16 17:51 | PN ---
Date of Progress Note: 10/16/2019 Subjective: Patient was evaluated using telemedicine due to high risk of virus transmission and to conserve PPE. The patient is somewhat worse today. Patient was placed on BiPAP yesterday and received convalescent plasma without any side effects. Case discussed with Dr. Tai, Dr. Sy and Dr. Odonnells, nurse practitioner. Medications: List reviewed. Physical Examination: Vital Signs: Temperature 97.3, heart rate 77, blood pressure 126/65, respirations 22, O2 91% on 4 L via nasal cannula. General: Awake, alert, and oriented x3. Elderly male, in some mild distress, obese. Respiratory: Slightly tachypneic. No visual use of accessory muscles. Nasal cannula in place. Neuro: Moves all 4 extremities. Speech is normal. Laboratory Data: Sodium 139, potassium 5.1, chloride 108, CO2 of 22, BUN 42, creatinine 2, glucose 123, calcium 9.1, phosphorus 3. CK level is 533. Albumin 2.9. Stool culture negative for any Salmonella, Shigella, or campylobacter. Blood cultures, no growth to date. Chest x-ray personally reviewed, shows slight worsening in aeration. Patient has negative fluid balance of 1200. Assessment And Plan: 1. A 69-year-old male with Hernandez virus disease 2019. The patient has been afebrile, now status post convalescent plasma. We will continue with azithromycin. Continue supplemental oxygen for hypoxia. Patient has been placed on BiPAP. Encouraged to keep it on as long as possible. Continue vitamin supplementation. Appreciate ID input and Pulmonology input. 2. Acute respiratory distress with hypoxia. Continue supplemental oxygen secondary to above. 3. Acute kidney injury. Kidney function is improving likely secondary to Rhabdomyolysis. Continue to monitor. Avoid NSAIDs. CPK levels come trending down. 4. Acute rhabdomyolysis. CPK level improved. 5. Diabetes mellitus type 2, [id number]-[id number] with hyperglycemia. Patient has now been started on Lantus, dose has been increased. Was not on any insulin at home. Hemoglobin A1c was 6.5% likely due to steroids. 6. Essential hypertension, stable. Hold ARB due to acute kidney injury. 7. Diarrhea likely secondary to coronavirus disease 2019, improving. No further diarrhea. IV fluids have been discontinued. Did continue to keep patient dry. Continue Lactinex. Stool cultures negative. Clostridium difficile negative. 8. Gastrointestinal prophylaxis with Pepcid. 9. Deep vein thrombosis prophylaxis with Lovenox due to thrombosis. We will give higher dose of Lovenox. Patient has been placed. Patient was started on CP. We will continue with Lasix 40 daily p.o. We will add vancomycin. Plan: Continue to monitor closely. Overall prognosis is guarded. The patient was seen virtually. Physical exam was completed using telemedicine and bedside RN assistance. Assessment and plan based on chart review, HPI, physical exam findings gathered during this encounter. Every effort has been made to make this encounter comprehensive to the best of our abilities, will be reassessed in a.m. /SHALOM Voice ID: [id number] Report ID: [id number] MTDJean Pierre
[2019-10-16] MEDS: INSULIN GLARGINE 100 UNITS/ML SQ SCH (20:16)
[2019-10-17] MEDS: ACETAMINOPHEN 500 MG TAB PO PRN (02:30)
[2019-10-17 05:32] LABS: Absolute Lymphocytes (CBC) 0.9 K/uL (0.7-4.9); Basophils % 0.3 % (0-1.3); Hematocrit 35.1 % (39.6-49.0); Lymphocytes % 9.5 % (15.3-44.8); MPV 9.3 fL (7.6-11.3); RBC Red Blood Cell Count 3.61 M/uL (4.33-5.43)
[2019-10-17 05:50] LABS: Albumin 2.9 g/dL (3.4-5.0); Phosphorus 3.4 mg/dL (2.5-4.9); Potassium 5.1 mmol/L (3.5-5.1)
[2019-10-17] MEDS: AZITHROMYCIN 250 MG TAB PO SCH (07:38)
[2019-10-17] MEDS: FUROSEMIDE 40 MG TABLET PO SCH (07:38)
[2019-10-17] MEDS: LACTOBACILLUS/ACIDOPHILUS TAB PO SCH ×2 (07:38→21:03)
[2019-10-17] MEDS: FAMOTIDINE 20 MG TAB PO SCH (07:38)
[2019-10-17] MEDS: predniSONE 20 MG TAB PO SCH ×2 (07:38→21:03)
[2019-10-17] MEDS: ZINC SULFATE 220 MG CAP PO SCH (07:38)
[2019-10-17] MEDS: VITAMIN D 1000 UNIT TAB PO SCH (07:39)
[2019-10-17] MEDS: ASCORBIC ACID 500 MG TABLET PO SCH (07:39)
[2019-10-17] MEDS: ENOXAPARIN 40 MG/0.4 ML SQ SCH ×2 (07:39→21:03)
[2019-10-17] MEDS: NEPRO SHAKE 237 ML CAN PO SCH (07:40)
[2019-10-17] MEDS: INSULIN GLARGINE 100 UNITS/ML SQ SCH ×2 (08:04→21:02)
[2019-10-17] MEDS: INSULIN -REGULAR HUMAN 50 UNIT/0.5 ML ML SQ SCH ×4 (08:05→21:02)
--- NOTE | 2019-10-17 12:38 | P.PN ---
Subjective Date of Service: 10/17/19 Primary Care Provider: Dr. Oviedo Chief Complaint: Respiratory failure No change stable weak hypoxic requiring O2 and BiPAP Review of Systems is unable to be obtained Physical Examination - Vital Signs Temperature: 97 F Blood Pressure: 144/84 Pulse: 78 Respirations: 18 Pulse Ox (%): 94 - Physical Exam General: Alert, Cooperative Other Physical/Emotional Findings: Agree with examination by nurse practitioner. Assessment & Plan - Problems (Diagnosis) (1) Respiratory failure Current Visit: Yes Status: Acute Plan: Patient's condition is stable no change in treatment renal function is improving continue monitor hopefully he will begin to improve for the weekend for sugar is still high on Lantus patient is going to diuretic 40% FiO2 Qualifiers: Chronicity: acute
[2019-10-17] MEDS ORDERED: D50W 25 GM/50 ML SYRINGE/VIAL IV PRN (12:41)
[2019-10-17] MEDS ORDERED: GLUCAGON 1 MG/VIAL IM PRN (12:41)
[2019-10-17] MEDS ORDERED: INSULIN -REGULAR HUMAN 50 UNIT/0.5 ML ML SQ ONE ×2 (12:42→14:00)
--- NOTE | 2019-10-17 14:43 | P.PN ---
Subjective Date of Service: 10/17/19 Primary Care Provider: Dr. Oviedo Chief Complaint: Respiratory failure Subjecvtive pt with COVID 19 , had JOHNY Today no overnight events using CPAP as needed Cr improved to 1.7 off IVF renal dose meds Physical Examination: General: AAOX3, , obeses , in mild distress neck: supple, no elevated JVD Heart: RRR, normal S1,2 no murmur or rub chest CTAB, no rales or whezes Abdomen: soft , NT ext : no edema Assessment And Plan: JOHNY improving off iVF renal dose meds COVID pneumonia cont supportive care DM SSI total time spent 35 min Physical Examination - Vital Signs Temperature: 97 F Blood Pressure: 144/84 Pulse: 78 Respirations: 18 Pulse Ox (%): 94 - Physical Exam Other Physical/Emotional Findings: Agree with examination by nurse practitioner.
--- NOTE | 2019-10-17 15:58 | PN ---
Date of Progress Note: 10/17/2019 Patient still on BiPAP as much as he can tolerate. States he does not feel very good, but has a very low appetite. Otherwise, no diarrhea. Medications: List reviewed. Physical Examination: Vital Signs: Temperature 97, heart rate 78, blood pressure 144/84, respirations 18, O2 sat 94% on 4 L. General: Awake, alert, oriented x3, elderly male in minimal distress, obese. Respiratory: No use of accessory muscles. Breathing normally. Nasal cannula in place. Does not appear in any acute respiratory distress. Neuro: Moves all 4 extremities. Speech is normal. Psych: Mood is somewhat depressed. Affect is full. Insight and judgment are good. Laboratory Data: Sodium 136, potassium 5.1, chloride 107, CO2 of 21, BUN 38, creatinine 1.78, glucose 306, calcium 8.6, phosphorus 3.4, albumin 2.9. WBC 9.1, H and H 12 and 35.1, platelets 202. Assessment: 69-year-old male with: 1. Coronavirus disease 2019, still afebrile status post convalescent plasma 1 unit. Continue azithromycin. Patient requiring supplemental oxygen and has been placed on bilevel positive airway pressure as much as he can tolerate. Encouraged to prone. Continue vitamin supplementation. Pulmonology and Infectious Disease on board. Appreciate their input. We will continue to monitor closely. White count is normal. 2. Acute respiratory failure with hypoxia. Continue supplemental oxygen and bilevel positive airway pressure secondary to above. 3. Acute kidney injury, improving, secondary to rhabdomyolysis and coronavirus disease 2019. Kidney functions have improved. We will keep patient on the dry side. 4. Acute rhabdomyolysis. CPK level is trending down. We will avoid intravenous fluids given the patient dry given coronavirus disease. 5. Diabetes mellitus type 2, [id number]-xevhsuisk, with hyperglycemia. Lantus was increased yesterday. We will continue to adjust blood glucose level, is still in the 300s. Patient is on low-dose steroids. 6. Essential hypertension, stable. Angiotensin receptor allyssa held due to acute kidney injury. May be able to restart if okay with Nephrology. 7. Diarrhea, resolved, secondary to coronavirus disease. Stool cultures and C difficile negative. 8. Gastrointestinal prophylaxis with famotidine. 9. Deep vein thrombosis prophylaxis with Lovenox. Plan: Monitor closely. Overall prognosis is guarded. Unfortunately, this facility does not have access to remdesivir. The patient was seen virtually. Physical exam completed using telemedicine. The assessment and plan are based on chart review, History of Present Illness, and physical exam findings gathered during this encounter. Every effort has been made to make this encounter comprehensive to the best of our abilities. BLAIRE Voice ID: [id number] Report ID: [id number] JOSE C
[2019-10-17] MEDS: ENSURE HIGH PROTEIN 237 ML CAN PO SCH (21:06)
[2019-10-18 05:00] LABS: Phosphorus 3.4 mg/dL (2.5-4.9); Potassium 4.8 mmol/L (3.5-5.1)
[2019-10-18] MEDS: predniSONE 20 MG TAB PO SCH ×2 (07:47→20:06)
[2019-10-18] MEDS: ZINC SULFATE 220 MG CAP PO SCH (07:47)
[2019-10-18] MEDS: ENOXAPARIN 40 MG/0.4 ML SQ SCH ×2 (07:47→20:06)
[2019-10-18] MEDS: AZITHROMYCIN 250 MG TAB PO SCH (07:48)
[2019-10-18] MEDS: VITAMIN D 1000 UNIT TAB PO SCH (07:48)
[2019-10-18] MEDS: ASCORBIC ACID 500 MG TABLET PO SCH (07:48)
[2019-10-18] MEDS: LACTOBACILLUS/ACIDOPHILUS TAB PO SCH ×2 (07:49→20:06)
[2019-10-18] MEDS: FAMOTIDINE 20 MG TAB PO SCH (07:49)
[2019-10-18] MEDS: FUROSEMIDE 40 MG TABLET PO SCH (07:49)
[2019-10-18] MEDS: ENSURE HIGH PROTEIN 237 ML CAN PO SCH ×2 (07:51→20:12)
[2019-10-18] MEDS: INSULIN -REGULAR HUMAN 50 UNIT/0.5 ML ML SQ SCH ×4 (08:57→20:30)
[2019-10-18] MEDS: INSULIN GLARGINE 100 UNITS/ML SQ SCH ×3 (08:58→20:41)
--- NOTE | 2019-10-18 11:50 | PN ---
Date of Progress Note: 10/18/2019 Subjective: Patient seen and examined. Chart reviewed and case discussed with RN and Dr. Sy. Patient states he is doing okay. Has not had any worsening. Currently on 5 L nasal cannula. Tolerating the BiPAP at night. States his appetite is still low. Medications: List reviewed. Physical Examination: Vital Signs: Temperature 97, heart rate 102, blood pressure 135/74, respirations 18, O2 91% on 5 L. General: Awake, alert, oriented, elderly male, obese, somewhat ill-appearing. Respiratory: Not using any accessory muscles. BiPAP on place. Does not appear to be in any moderate distress. Neurologic: Moves all 4 extremities. Speech is normal. Psychiatric: Mood is okay, somewhat depressed. Affect is full. Insight and judgment are good. Laboratory Data: Sodium 138, potassium 4.8, chloride 106, CO2 of 23, BUN 47, creatinine 1.99, glucose 383, calcium 9, phosphorus 3.4, albumin 3. WBC pending. Blood cultures, no growth to date. Assessment: 69-year-old male with; 1. Coronavirus disease 2019. Currently afebrile. Status post convalescent plasma, 1 unit. Patient is stable, is tolerating azithromycin. He uses BiPAP as much as he can. Otherwise, he is on 4 to 5 L of oxygen. He is encouraged to continue proning and continue vitamin supplementation. Appreciate Pulmonology and Infectious Disease input. We will continue to monitor closely. Ferritin had trended down. 2. Acute respiratory failure with hypoxia. Continue BiPAP and supplemental oxygen secondary to above. 3. Acute kidney injury. Kidney function is improved secondary to rhabdomyolysis and coronavirus disease 2019. Plan is to keep the patient on the dry side. Patient has negative fluid status. 4. Acute rhabdomyolysis. CK level trending down, resolving. 5. Diabetes mellitus type 2, vwg-zoaqnph-xgtfftmuo with hyperglycemia. Patient continues to have hyperglycemia due to steroids. Lantus was adjusted yesterday. We will need to go up on his Lantus again today. 6. Essential hypertension, stable. Nephrology does not recommend restarting ARB due to his kidney function at this time. We will continue to monitor. 7. Diarrhea, resolved, likely due to coronavirus disease 2019. Clostridium difficile ruled out. 8. Gastrointestinal prophylaxis with famotidine. 9. Deep vein thrombosis prophylaxis with Lovenox. Plan: We will continue to monitor O2 saturations closely with continuous pulse oximetry. His prognosis is still somewhat guarded. He is showing some signs of improvement as he has been afebrile since the plasma. His oxygenation is stable. We will try to wean off BiPAP and continue azithromycin and steroids for now. Depending on his condition, maybe able to send him home with home oxygen in the next 48 to 72 hours. Patient was seen virtually. Physical exam completed using telemedicine with assistance from the bedside RN. Assessment and plan based on chart review, HPI, physical exam findings gathered during this encounter. Every effort has been made to make this encounter comprehensive to the best of our abilities. /SHALOM Voice ID: [id number] Report ID: [id number] MTDJean Pierre
--- NOTE | 2019-10-18 14:03 | P.PN ---
Subjective Date of Service: 10/18/19 Primary Care Provider: Dr. Oviedo Chief Complaint: Respiratory failure Subjective Pt with COVID 19 , examination was deferred to hospitalist S/p convalescent plasma Subjecvtive pt with COVID 19 , had JOHNY Today pt was restarted on lasix yesterday , his Cr slightly elevated on O2 5 liters and BiPAP prn will monitor fluid status and RFt and consider to reduce lasix frequency , if Cr trending up insulin adjusted Physical Examination: deffered to hospitalist Assessment And Plan: JOHNY Cr stable possibly due o COVID will monitor fluid status and RFt and consider to reduce lasix frequency renal dose meds COVID pneumonia cont supportive care S/P convalescent plasma DM SSI HTN will hold on ARB now as RFT still unstable total time spent 35 min Physical Examination - Vital Signs Temperature: 97 F Blood Pressure: 147/71 Pulse: 123 Respirations: 18 Pulse Ox (%): 91 - Physical Exam Other Physical/Emotional Findings: Agree with examination by nurse practitioner. - Studies Microbiology Data (last 24 hrs): 10/13/19 13:08 Blood - Blood Aerobic Blood Culture - Final No growth in 5 days. 10/13/19 13:08 Blood - Blood Anaerobic Blood Culture - Final No growth in 5 days. 10/13/19 13:04 Blood - Blood Aerobic Blood Culture - Final No growth in 5 days. 10/13/19 13:04 Blood - Blood Anaerobic Blood Culture - Final 10/13/19 13:04 Blood - Blood Gram Stain - Final
[2019-10-18] MEDS ORDERED: INSULIN -REGULAR HUMAN 50 UNIT/0.5 ML ML SQ ONE (17:28)
[2019-10-19 04:54] LABS: Basophils % 0.4 % (0-1.3); Hematocrit 42.8 % (39.6-49.0); Lymphocytes % 7.9 % (15.3-44.8); MPV 9.6 fL (7.6-11.3); RBC Red Blood Cell Count 4.35 M/uL (4.33-5.43)
[2019-10-19 04:59] LABS: Albumin 3.1 g/dL (3.4-5.0); Phosphorus 3.7 mg/dL (2.5-4.9); Potassium 5.3 mmol/L (3.5-5.1)
[2019-10-19] MEDS: INSULIN -REGULAR HUMAN 50 UNIT/0.5 ML ML SQ SCH ×4 (07:30→20:55)
[2019-10-19] MEDS: ENOXAPARIN 40 MG/0.4 ML SQ SCH ×2 (08:52→21:40)
[2019-10-19] MEDS: predniSONE 20 MG TAB PO SCH ×2 (08:52→20:51)
[2019-10-19] MEDS: FAMOTIDINE 20 MG TAB PO SCH (08:57)
[2019-10-19] MEDS: VITAMIN D 1000 UNIT TAB PO SCH (08:58)
[2019-10-19] MEDS: ZINC SULFATE 220 MG CAP PO SCH (08:58)
[2019-10-19] MEDS: ASCORBIC ACID 500 MG TABLET PO SCH (08:58)
[2019-10-19] MEDS: LACTOBACILLUS/ACIDOPHILUS TAB PO SCH ×2 (08:58→20:52)
[2019-10-19] MEDS: INSULIN GLARGINE 100 UNITS/ML SQ SCH ×2 (09:04→21:38)
[2019-10-19] MEDS: ENSURE HIGH PROTEIN 237 ML CAN PO SCH ×2 (09:05→21:37)
[2019-10-19] MEDS: FUROSEMIDE 40 MG TABLET PO SCH (10:41)
--- NOTE | 2019-10-19 11:14 | P.PN ---
Subjective Date of Service: 10/19/19 Primary Care Provider: Dr. Oviedo Chief Complaint: Respiratory failure Patient's condition is stable still requiring BiPAP he is alert responsive cooperative wants to go Review of Systems Unremarkable Physical Examination - Vital Signs Temperature: 96.5 F Blood Pressure: 148/86 Pulse: 105 Respirations: 20 Pulse Ox (%): 96 - Physical Exam General: Alert, Oriented x3 Other Physical/Emotional Findings: Agree with examination by nurse practitioner. - Studies Microbiology Data (last 24 hrs): 10/13/19 13:08 Blood - Blood Aerobic Blood Culture - Final No growth in 5 days. 10/13/19 13:08 Blood - Blood Anaerobic Blood Culture - Final No growth in 5 days. 10/13/19 13:04 Blood - Blood Aerobic Blood Culture - Final No growth in 5 days. 10/13/19 13:04 Blood - Blood Anaerobic Blood Culture - Final 10/13/19 13:04 Blood - Blood Gram Stain - Final Assessment & Plan - Problems (Diagnosis) (1) Respiratory failure Current Visit: Yes Status: Acute Plan: Patient is improving will check his sats on 4 L of nasal cannula oxygen off the BiPAP consider discharge if is requiring less than 5 L continue with low-dose prednisone kidney function is slightly worse continue with diuretics avoid spironolactone and potassium at home continue with Lasix Qualifiers: Chronicity: acute Discharge Plan: Home Plan to discharge in: 48 Hours
[2019-10-19] MEDS ORDERED: SOD POLYSTYREN SUL 15 GM/60 ML UCUP PO ONE (13:43)
[2019-10-19] MEDS: NACHLORIDE 0.45% 500 ML IV SCH ×2 (13:45→23:43)
--- NOTE | 2019-10-19 13:48 | P.PN ---
Subjective Date of Service: 10/19/19 Primary Care Provider: Dr. Oviedo Chief Complaint: Respiratory failure Subjective: Improving Subjecvtive pt with COVID 19 , had JOHNY Today feels better Chest clear on exam , no peripheral edema will dc lasix , but looks dry/euvolemic with persistent hyperglycemia will give 1/2 NS 500ml will give kayexalate Physical exam general: AAOX3, NAD , obese Neck; Supple, No elevated JVD hear: RRR, normal S1,2 no murmur or rub Chest: CTAB, no rlaes or wheezes Abdomen: Soft , Nt Extremities No edema or ulcer Assessment And Plan: JOHNY Cr stable possibly due to COVID , with dehydration will dc lasix will give 1/2 NS 500ml only renal dose meds COVID pneumonia cont supportive care S/P convalescent plasma improving DM SSI HTN will hold on ARB now as RFT still unstable total time spent 35 min Physical Examination - Vital Signs Temperature: 97.1 F Blood Pressure: 140/80 Pulse: 117 Respirations: 20 Pulse Ox (%): 94 - Physical Exam Other Physical/Emotional Findings: Agree with examination by nurse practitioner. - Studies Microbiology Data (last 24 hrs): 10/13/19 13:08 Blood - Blood Aerobic Blood Culture - Final No growth in 5 days. 10/13/19 13:08 Blood - Blood Anaerobic Blood Culture - Final No growth in 5 days. 10/13/19 13:04 Blood - Blood Aerobic Blood Culture - Final No growth in 5 days. 10/13/19 13:04 Blood - Blood Anaerobic Blood Culture - Final 10/13/19 13:04 Blood - Blood Gram Stain - Final
--- NOTE | 2019-10-19 14:12 | PN ---
Date of Progress Note: 10/19/2019 Patient seen and examined. Chart reviewed and case discussed with RN and Dr. Sy. Patient seem s to be in better spirits, doing well. The overall hepatitis improved. Medications: List reviewed. Physical Examination: Vital Signs: Temperature 95.9, heart rate 102, blood pressure 140/80, respirations 22, O2 95% on 5 L . Patient tolerating BiPAP. General: Awake, alert, oriented x3. Elderly male, obese, does not appear to be in any acute distres s. Respiratory: No use of accessory muscles visualized. Nasal cannula in place. Does not appear to be any acute distress. Neurologic: Nonfocal. Moves all 4 extremities. Speech is normal. PSYCH: Mood is okay. Affect is full. Insight and judgment are good. Laboratory Data: Sodium 140, potassium 5.3, chloride 106, CO2 of 26, BUN 62, creatinine 2.17, glucos e 299, calcium 9.5, phosphorus 3.7, albumin 3.1. WBC 12.7, H and H 14.1 and 42.8, platelets 306, maryann trophils 83%. Cultures: Negative final blood cultures. Assessment: 69-year-old male with: 1.Coronavirus disease 2019. The patient has been afebrile. He received 1 unit of convalescent plas ma, stable. Is using bilevel positive airway pressure as needed, currently on 5 L. Patient not real ly pronating. Will continue vitamin supplementation. Zithromax discontinued by Pulmonology. We mirna l repeat ferritin today. 2.Acute respiratory failure with hypoxia requiring bilevel positive airway pressure intermittently, currently on 5 L. We will try to wean down if 90% on 4 L and then may be able to be discharged. 3.Acute kidney injury. Kidney function seems to be back to baseline. This was secondary to rhabdo and coronavirus disease 2019. 4.Acute rhabdomyolysis. CK level trending down. Resolving. 5.Diabetes mellitus type 2, now requiring insulin with hyperglycemia very much uncontrolled despite his low A1c. This may be due to stress, steroids, and his diet. Patient eating quite a bit of starc hy foods. Lantus increased to 40 b.i.d. Blood sugar levels now in the 200-300 range. 6.Essential hypertension, stable. Holding angiotensin receptor allyssa due to his kidney function a t this time per Nephrology recommendation. 7.Diarrhea, resolved, secondary to coronavirus disease. Clostridium difficile ruled out. Stool cul tures negative. 8.Gastrointestinal prophylaxis with famotidine. 9.Deep vein thrombosis prophylaxis with Lovenox. Plan: We will try to wean off to 4 L if at least 90% and can be discharged home with home O2. We wi ll repeat a ferritin today. The patient was seen virtually. Physical exam completed using telemedicine with assistance from the bedside RN, assessment and plan based on chart review, HPI, physical exam findings gathered during th is encounter. Every effort has been made to make this encounter comprehensive to the best of our mulugeta lities. /SHALOM Voice ID: [id number] Report ID: [id number]
--- NOTE | 2019-10-19 23:04 | DS ---
date of service 10/19/19 Consultants: 1. Dr. Jarquin and Dr. Tai with Nephrology. 2. Dr. Sy with Pulmonology. 3. Dr. Harrell with Nephrology. 4. Dr. Hamilton with Infectious Disease. Admitting Diagnoses: 1. Acute kidney injury with hyperkalemia. 2. Coronavirus disease 2019. 3. Diabetes mellitus type 2, insulin requiring with hyperglycemia. 4. Essential hypertension. 5. Obesity. Discharge Diagnoses: 1. Coronavirus disease 2019. 2. Acute respiratory failure with hypoxia, improved, currently on 4 L. 3. Acute kidney injury, back to baseline. Does have some chronic kidney disease. 4. Acute rhabdomyolysis, resolved. 5. Diabetes mellitus type 2 with hyperglycemia, insulin requiring. 6. Essential hypertension, stable. 7. Diarrhea, resolved. 8. Gastroesophageal reflux disease. 9. Obesity, BMI 31. Hospital Course: Patient is a 69-year-old male, who came into the ER with a 4- day history of diarrhea and malaise. Patient had multiple family members testing positive for COVID-19. Patient was found to be in renal failure and having diarrhea. Patient does have some level of chronic kidney disease, the baseline around 1.7. Patient was admitted to isolation room. His blood cultures were negative. His influenza screen was also negative. Stool cultures were negative. C difficile was also negative. He was seen by Infectious Disease as well as Nephrology and Pulmonology. Regarding his diarrhea, it resolved. Patient likely had symptoms related to COVID-19. He was able to be hydrated initially with IV fluids. His kidney function improved, then IV fluids were discontinued. Infectious Disease recommended multivitamins including C, D, and zinc as well as Lactinex. Regarding his COVID-19, patient was started on azithromycin and low-dose steroids as well. He was also given convalescent plasma with consent. He improved after treatment. His vital signs remained stable. He became afebrile. Patient did have respiratory distress and ARDS requiring BiPAP and was slowly able to be weaned off to 4 L. He was set up with home oxygen. Patient did have some steroid-induced leukocytosis. His blood sugars were not well controlled in the 400s likely due to the steroid stress. He is also on protein supplements, which have sugar. Therefore, patient's insulin was adjusted. He was placed on 40 of Lantus b.i.d. along with sliding scale. Patient was doing better. He was then cleared for discharge from Pulmonology standpoint and Nephrology standpoint. He will need to follow up closely with his primary care physician as well as chalk cutter, Dr. Sy in 1 week. Follow up with machine edge bander, Dr. Tai in 2 weeks return. Return to ER for worsening condition. Continue self quarantine at home. Diet: Diabetic. Activity: No strenuous activity. Medications: As per medication reconciliation list. No further azithromycin per Pulmonology. Finish off course of low-dose steroids. Physical Examination: For physical exam findings, please see progress note dictated on the day of discharge. Total time spent discharging the patient was 45 minutes. BLAIRE Voice ID: [id number] Report ID: [id number] JOSE C
[2019-10-20 04:21] LABS: Absolute Lymphocytes (CBC) 1.2 K/uL (0.7-4.9); Basophils % 1.1 % (0-1.3); Hematocrit 42.4 % (39.6-49.0); Lymphocytes % 7.8 % (15.3-44.8); MPV 9.3 fL (7.6-11.3); RBC Red Blood Cell Count 4.35 M/uL (4.33-5.43)
[2019-10-20 04:28] LABS: Potassium 4.5 mmol/L (3.5-5.1)
[2019-10-20] MEDS: ASCORBIC ACID 500 MG TABLET PO SCH (08:33)
[2019-10-20] MEDS: LACTOBACILLUS/ACIDOPHILUS TAB PO SCH (08:33)
[2019-10-20] MEDS: VITAMIN D 1000 UNIT TAB PO SCH (08:33)
[2019-10-20] MEDS: FAMOTIDINE 20 MG TAB PO SCH (08:33)
[2019-10-20] MEDS: ZINC SULFATE 220 MG CAP PO SCH (08:33)
[2019-10-20] MEDS: predniSONE 20 MG TAB PO SCH (08:33)
[2019-10-20] MEDS: ENSURE HIGH PROTEIN 237 ML CAN PO SCH (08:34)
[2019-10-20] MEDS: INSULIN GLARGINE 100 UNITS/ML SQ SCH (08:34)
[2019-10-20] MEDS: ENOXAPARIN 40 MG/0.4 ML SQ SCH (08:34)
[2019-10-20] MEDS: INSULIN -REGULAR HUMAN 50 UNIT/0.5 ML ML SQ SCH ×2 (08:55→13:11)
[2019-10-20] MEDS: NACHLORIDE 0.45% 500 ML IV SCH (09:45)
[2019-10-20 13:16] VITALS: BP 145/86; TEMP 98.1; O2SAT 93
--- NOTE | 2019-10-20 13:22 | P.PN ---
Subjective Date of Service: 10/20/19 Primary Care Provider: Dr. Oviedo Chief Complaint: Respiratory failure Subjective: Other (This is an addendum to discharge summary done by Dr. Holm yesterday. Discharge was held yesterday as home oxygen was arranged. Home oxygen now arranged. Patient stable this time. No complaints noted. Please see discharge summary for details.) Physical Examination - Vital Signs Temperature: 98.1 F Blood Pressure: 145/86 Pulse: 110 Respirations: 20 Pulse Ox (%): 93 - Physical Exam General: Alert, In no apparent distress, Oriented x3, Cooperative HEENT: Atraumatic Neck: Supple Respiratory: Clear to auscultation bilaterally, Normal air movement Cardiovascular: Abnormal pulses (Mild sinus tachycardia) Gastrointestinal: Normal bowel sounds, No masses, No rebound, No guarding Integumentary: No tenderness/swelling Neurological: Normal speech, Normal strength at 5/5 x4 extr, Normal tone, Normal affect - Studies Medications List Reviewed: Yes Assessment & Plan Discharge Plan: Home Plan to discharge in: 24 Hours Physician Review Additional Text: Impression/plan: Same as discharge summary done by Dr. Holm. Continue with discharge plan of care. Home oxygen has been arranged. Patient will continue with home oxygen to maintain sats above 93%. Patient currently on 4 L per nasal cannula. Patient will continue with prednisone as recommended. Recommend follow up with pulmonology within 1 week. Education on COVID-19 will be provided along with recommendations. Time Spent Managing Pts Care (In Minutes): 55
--- NOTE | 2019-10-20 13:40 | P.PN ---
Date of Service: 10/20/19 Subjective: Patient is a 69-year-old male who presented to the emergency room with diarrhea and malaise. Patient reported multiple family members with Covid 19. Patient tested positive for Covid 19 which I have been consulted for. Patient examined through glass door. Patient awake, alert, lying in bed utilizing nasal cannula. Objective: Temp Pulse Resp BP Pulse Ox 98.1 F 110 H 20 145/86 H 93 10/20/19 13:22 10/20/19 13:22 10/20/19 13:22 10/20/19 13:22 10/20/19 13:22 Labs: Na 140, K 4.5, BUN 63, Creat 2.10, glucose 226, WBC 14.9 Chest x-ray 10/15: EXAM DESCRIPTION: RAD - Chest Single View - 10/16/2019 11:13 am CLINICAL HISTORY: Follow up Chest pain. COMPARISON: Chest Single View dated 10/13/2019 FINDINGS: Portable technique limits examination quality. Mild worsening in bilateral pulmonary opacities since comparative study. The hea rt is normal in size. No displaced fractures. IMPRESSION: Mild worsening in lung aeration is seen. Assessment And Plan: Diarrhea resolved Fevers resolved Leukocytosis, most likely reactive to steroids Covid 19, patient received transfusion of convalescent plasma x1 Patient requiring oxygen and is set up to be discharged home with home O2 Patient to be discharged home today with Prednisone and Zinc Will continue to monitor Patient discussed with Dr. Hamilton
--- NOTE | 2019-10-21 01:48 | PN ---
Date of Progress Note: 10/20/2019 Chief Complaint: Acute kidney injury in setting of COVID-19 infection. History: Patient is feeling better. Lasix was discontinued, but he looked hypovolemic and was given normal saline and half-normal saline. Potassium was treated with Kayexalate. Physical Examination: Deferred to hospitalist. Laboratory Data: Hemoglobin 14.2, WBC 14.9, platelet count 327,000. Sodium 140, potassium 4.5, chlo ride 107, CO2 of 25, BUN , creatinine 1.0, glucose 226. Impression And Plan: Acute kidney injury. Renal function somewhat declined over the last several da ys. Patient was started on IV fluids. Monitor renal function. Electrolytes are stable. Potassium level is within normal limits. Patient has nonoliguric urine output. Patient has chronic kidney dis ease stage 3. He will need to follow up with Nephrology outpatient. Recommend to avoid nephrotoxic medication. Acute kidney injury, possibly due to hypovolemia and COVID infection. Lasix was stopped due to prerenal azotemia. EB/MODL Voice ID: [id number] Report ID: [id number]
== END 2019-10-20 14:20 | disposition home or self-care (01) | DRG 177 ==
LOC: ER 12:06 → ERHOLD 15:40 → 4TH 17:21
PROVIDERS: ADMIT Family Medicine; ATTEND Family Medicine
PROC: 8E0ZXY6 Isolation (ICD-10-PCS; principal; 2019-10-13)
PROC: 30233K1 Transfusion of Nonautologous Frozen Plasma into Peripheral Vein, Percutaneous Approach (ICD-10-PCS; 2019-10-20)
DX: U07.1 COVID-19 (principal); J12.89 Other viral pneumonia; J96.01 Acute respiratory failure with hypoxia; N17.9 Acute kidney failure, unspecified; E87.2 Acidosis; M62.82 Rhabdomyolysis; E87.5 Hyperkalemia; E86.0 Dehydration; E11.65 Type 2 diabetes mellitus with hyperglycemia; I12.9 Hypertensive chronic kidney disease with stage 1 through stage 4 chronic kidney disease, or unspecified chronic kidney disease; E11.22 Type 2 diabetes mellitus with diabetic chronic kidney disease; K52.9 Noninfective gastroenteritis and colitis, unspecified; Z79.4 Long term (current) use of insulin; Z79.899 Other long term (current) drug therapy; N18.3 Chronic kidney disease, stage 3 (moderate); E66.9 Obesity, unspecified; Z68.31 Body mass index [BMI] 31.0-31.9, adult
CPT/HCPCS: 36415; 71045; 76770; 80048; 80053; 80069; 80076; 81015; 82150; 82550; 82553; 82570; 82728; 82947; 83036; 83605; 83615; 83690; 83735; 84100; 84145; 84156; 84484; 84550; 85025; 85610; 85730; 86850; 86900; 86901; 87040; 87045; 87046; 87070; 87081; 87177; 87205; 87209; 87324; 87449; 87804; 89055; 93005; 94660; 94760; 96365; 96375; 99285; J0456; J0610; J0696; J1644; J1650; J1815; J1940; J2920; J7030; J7040; J7512